=== PATIENT | male | born 1945 | race Caucasian/White ===

== ENCOUNTER → 2016-12-06 | Outpatient (CLI) | payer OTHER, MEDICARE ==
[~2016-12-06] VITALS: Ht 172.7 cm; Wt 70.3 kg
[~2016-12-06] MED LIST: B-12500 MCG PO; CELEBREX 200 M200 M1 PO; COZAAR 50 MG TA50 M2 PO; CYMBALTA30 MG PO; CYMBALTA60 MG PO; FISH OIL 1,2001 EAC4 PO; GLUCOSAMINE-CH1 EA25 PO; HYDROXYCHLOROQ200 M1 PO; IBUPROFEN 400400 M2 PO; VITAMIN B-12500 MCG PO
--- NOTE | ~2016-12-06 | CATHLAB ---
[facility] [place] [address] INVASIVE PROCEDURE REPORT Name: YVES CELARY [facility]: [facility] [id number] Admission: 12/06/16 Attend Phys: Yves Cook, Discharge: Date of : 41 Date of Service: 12/06/16 0950 Report #: [id number] THIS REPORT FOR: //name// APPROVED REPORT Patient Details Patient Status: Out-Patient Room #: The patient is a 71 year-old male Event Personnel Yves Cook Web Systems Developer, Gauri Thibodeaux Monitor, Karol Collazo RTDanita Monitor, Antonio Vallejo RN, Prabha Menard Procedures Performed Art Access - R femoral artery* 48129 Initial Mod Sed Same Phys/QHP Gr5y [id number] Left Heart Cath w/or w/o Coronaries [id number] C Hemostasis w/ Mynx Aortogram Abdominal Peripheral Angio [id number] Procedure Narrative The patient was brought electively to the Cardiac Catheterization Laboratory and was prepped and draped in a sterile manner. The Right Groin^ was infiltrated with 1% Lidocaine subcutaneous anesthesia. A PINNACLE 6FR Sheath #[id number] sheath was inserted into the RFA^. Coronary angiography was performed using coronary diagnostic catheters. The right coronary system was accessed and visualized with a JR 4 catheter. The left coronary system was accessed and visualized with a JL 4 catheter. The left ventricle was accessed and visualized with a Pigtail catheter. Left ventricular/Aortic Valve gradient assessed via catheter pullback. Left ventriculogram was performed in 30 degree projection. An aortogram of the abdominal aorta was performed. Pre-demployment femoral angiogram was performed . Closure device was deployed with a 6 Fr Mynx. The patient tolerated the procedure well and there were no complications associated with the procedure. There was no hematoma. Intraoperative Conscious Sedation Sedation start time: 08:22 Case end Time: 08:40 Fentanyl 50.0 mcg Versed 1.0 mg Fluoro Time: 2.36 minutes Dose: DAP 2601.10 cGycm2 280 mGy Contrast Type and Amount: Visipaque 135 ml [facility] [address] [place] [address] INVASIVE PROCEDURE REPORT Name: YVES CLEARY [facility] [id number] Admission: 12/06/16 Attend Phys: Yves Cook, Discharge: Date of : 41 Date of Service: 12/06/16 0950 Report #: [id number] Hemodynamics The aortic pressure is 136/67 mmHg with a mean of 95 mmHg. The left ventricular pressure is 124/1 mmHg with a mean of mmHg. The left ventricular end diastolic pressure is 6 mmHg. Conclusion #1 normal left ventricular size and systolic function EF 60% #2 tortuous abdominal aorta and iliac system no occlusive disease is noted renal arteries appear to be patent #3 left main mild ostial disease otherwise widely patent giving rise to LAD and circumflex #4 LAD extends around the apex with minimal irregularity. #5 circumflex OM nondominant there is an eccentric 4050% lesion just off of the left main with otherwise well-preserved OM system #6 large dominant right coronary artery with an eccentric 3040% proximal narrowing otherwise wide patency of the distal vessel and PDA BETH system #7 successful femoral artery closure with minx closure device no hematoma Recommendations and plan no lifting for 2448 hrs. no tub Jacuzzi or Verdugo for a week. Restart home medications. Follow-up 6 months. No indication for intervention. <ELECTRONICALLY SIGNED> By: Yves Cook MD, FACC 12/06/1650 9 9 Yves Cook MD, FACC /INF
--- NOTE | ~2016-12-06 | H ---
[facility] [place] [address] HISTORY AND PHYSICAL Name: YVES CLEARY Room #: REG [facility] StefanoDanielleDanitaDanielle#: [id number] Admission: 12/06/16 Attend Phys: Yves Cook MD, Discharge: Date of : 41 Report #: [id number] THIS REPORT FOR: //name// CC: CLAUDIA Villeda DATE OF SERVICE: 12/06/2016 HISTORY OF PRESENT ILLNESS: A 71-year-old male who was admitted today for cardiac catheterization. He has been having some progressive dyspnea, shortness of breath and an abnormal stress test. Also, decreased exercise tolerance. He does have chronic pain and spinal stenosis, so activity is somewhat limited. He has described heaviness intermittently in his chest. He takes blood pressure medications. His lipids have been fairly favorable. He denies any syncope or presyncope. His EKG is sinus rhythm with nonspecific changes. He does have underlying right bundle. MEDICATIONS: Losartan 50, vitamin B12, fish oil, Celebrex. LABORATORY DATA: His HDL was 50, his LDL was 33, trigs 69, cholesterol 116, on no medications. PAST MEDICAL HISTORY: Positive for the spinal stenosis, chronic back pain, hypertension, Fuchs corneal dystrophy, osteoarthritis, history of melanoma, prostate cancer, mild urinary incontinence, prior cataracts, tonsillectomy, adenoidectomy, and prostatectomy. FAMILY HISTORY: Strongly positive. Both parents have had infarcts. SOCIAL HISTORY: He is . He is partially retired. Moderate alcohol use. No tobacco use. He was a former smoker. ALLERGIES: OXYCODONE AND TRAMADOL. REVIEW OF SYSTEMS: Negative except for some hesitancy and some occasional nocturia, mild incontinence issues. DIAGNOSTIC STUDIES: EKG is sinus rhythm, right bundle PACs. PHYSICAL EXAMINATION: GENERAL: Pleasant, alert. VITAL SIGNS: Blood pressure 124/82. Pulse is 60 and regular. HEENT: Eyes reveal xanthelasmas. Pharynx is clear. NECK: Shows preserved upstrokes without JVD or bruits. [facility] [address] [place] [address] HISTORY AND PHYSICAL Name: YVES CLEARY Room #: [facility]#: [id number] Admission: 12/06/16 Attend Phys: Yves Cook MD, Discharge: Date of : 41 Report #: [id number] LUNGS: Clear. CARDIOVASCULAR: Regular rate and rhythm, S1, S2. ABDOMEN: Soft. No HSM or abdominal bruit. EXTREMITIES: Reveal no edema. Pulses were intact. NEUROLOGIC: Nonfocal. SKIN: Warm and dry without xanthoma or ulcer. MUSCULOSKELETAL: No gross joint deformity. ASSESSMENT: 1. Recurrent chest pain, suspected coronary artery disease with abnormal stress test. 2. Hypertension. 3. History of prior tobacco use. 4. Positive family history for coronary disease. 5. Degenerative joint disease. RECOMMENDATIONS AND PLAN: We will proceed to the catheterization lab to delineate the anatomy. Risks, benefits, alternatives were discussed. The patient does elect to proceed. ADDENDUM: The patient has completed a cardiac catheterization. It is a right dominant system. LV function is preserved. There is a 30% to 40% mid RCA lesion, which is a dominant vessel. There was no other significant occlusive disease, presumably a false positive ____ on his stress test. This fatigue and decreased exercise tolerance do not appear to be on the basis of cardiovascular etiology. I would continue his current regimen. Restart medications. No lifting for 48 hours. No lying in tub, Jacuzzi or sanchez for a week. Follow up with Dr. Hairston as scheduled. I will see him in 6 months. Call with any issues. By: 0845 [id number] Yves Cook MD, FACC /nt
[2016-12-06 07:30] VITALS: BP 133/79
[2016-12-06 08:02] LABS: HEMATOCRIT 41.6 % (42.0-52.0); HEMOGLOBIN 14.3 gm/dL (14.0-18.0); MCH 32.2 pg (26.0-34.0); MCHC 34.5 g/dL (28.0-37.0); MCV 93.3 fL (80.0-100.0); RBC 4.45 mil/uL (4.50-6.00); RDW 13.1 % (10.5-14.5); WBC 4.6 thou/uL (4.0-11.0)
[2016-12-06 08:06] LABS: CALCIUM 9.1 mg/dL (8.5-10.1); CREATININE 1.1 mg/dL (0.7-1.3); POTASSIUM 4.4 mmol/L (3.5-5.1)
== END ==
LOC: CATH 06:57
PROVIDERS: Internal Medicine Cardiovascular Disease
DX: I25.10 Atherosclerotic heart disease of native coronary artery without angina pectoris (principal); I10 Essential (primary) hypertension; M19.90 Unspecified osteoarthritis, unspecified site; F32.89 Other specified depressive episodes; Z85.820 Personal history of malignant melanoma of skin; Z85.46 Personal history of malignant neoplasm of prostate; Z98.890 Other specified postprocedural states; Z79.899 Other long term (current) drug therapy; Z82.49 Family history of ischemic heart disease and other diseases of the circulatory system; Z87.891 Personal history of nicotine dependence